=== PATIENT | male | born 1955 | race African-American/Black ===

== ENCOUNTER 2020-04-02 13:42 | Inpatient (IN) | payer OTHER ==
[2020-04-02 15:53] LABS: BASO % 0.9 % (0-2.0); EOS % 2.1 % (0-4.5); HEMATOCRIT 27.9 % (35.4-49); HEMOGLOBIN 8.8 GM/dL (11.7-16.9); LYMPH % 17.6 % (8-40); MCH 28.2 pg (25.7-33.7); MCHC 31.6 g/dl (32.0-35.9); MEAN CELL VOLUME 89.1 fl (80-96); MEAN PLT VOLUME 7.2 fl (7.5-11.1); MONO % 9.6 % (3.8-10.2); NEUT % 69.8 % (42.8-82.8); PLATELET COUNT 626 K/MM3 (134-434); RBC 3.14 M/mm3 (4.00-5.60); RDW 15.8 % (11.9-15.9); WHITE BLOOD COUNT 11.2 K/mm3 (4.0-10.0)
[2020-04-02 16:15] LABS: INR 1.18 (0.83-1.09); PROTHROMBIN TIME (PATIENT) 14.4 SEC (9.7-13.0)
[2020-04-02 16:17] LABS: ACTIVATED PTT 34.3 SECONDS (25.2-36.5)
[2020-04-02 16:20] LABS: CHLORIDE 99 mmol/L (98-107); POTASSIUM 5.3 mmol/L (3.5-5.1); SODIUM 137 mmol/L (136-145)
[2020-04-02 16:22] LABS: ALBUMIN 2.6 g/dl (3.4-5.0); ANION GAP 14 MMOL/L (8-16); CALCIUM 8.3 mg/dL (8.5-10.1); CO2 23 mmol/L (21-32); GLUCOSE,RANDOM 79 mg/dL (74-106)
[2020-04-02 16:26] LABS: SGOT/AST 12 U/L (15-37); SGPT/ALT 18 U/L (13-61)
[2020-04-02 16:27] LABS: BILIRUBIN,TOTAL 0.2 mg/dL (0.2-1); TOT PROT 8.4 g/dl (6.4-8.2)
[2020-04-02 16:28] LABS: ALK PHOS 162 U/L (45-117)
[2020-04-02 16:41] LABS: BLOOD UREA NITROGEN 108.7 mg/dL (7-18); CREATININE 12.6 mg/dL (0.55-1.3)
[2020-04-02] MEDS ORDERED: SODIUM CHLORIDE 250 ML IV PRN ×2 (19:12→19:13)
[2020-04-02] MEDS ORDERED: VANCOMYCIN 2,000 MG in DEXTROSE 5%-WATER - 500 ML IVPB ONE (21:15)
[2020-04-02] MEDS ORDERED: carBAMazepine 200 MG TABLET ONE (21:29)
[2020-04-02] MEDS ORDERED: PIPERACILLIN/TAZOB 2.25 GM 2.25 GM/50 ML BAG IVPB ONE (21:30)
[2020-04-02] MEDS ORDERED: DIVALPROEX SODIUM 125 MG TABLET E.C. ONE (21:30)
[2020-04-02] MEDS: PIPERACILLIN/TAZOB 2.25 GM 2.25 GM in DEXTROSE 5%-WATER - 50 ML IVPB SCH (21:43)
[2020-04-02] MEDS: DIVALPROEX SODIUM 250 MG TABLET E.C. PO SCH (22:00)
[2020-04-02] MEDS: HALOPERIDOL 5 MG TABLET PO SCH (22:00)
[2020-04-02] MEDS: carBAMazepine 200 MG TABLET PO SCH (22:09)
[2020-04-02] MEDS: INSULIN SLIDING SCALE (NOVOLOG) 1 VIAL SQ SCH (22:09)
[2020-04-03] MEDS ORDERED: PIPERACILLIN/TAZOBACTAM 2.25 GM VIAL IVPB ONE ×3 (05:55→17:38)
[2020-04-03] MEDS ORDERED: DEXTROSE 5%-WATER - 50 ML IVPB ONE ×3 (05:56→17:38)
[2020-04-03] MEDS: PIPERACILLIN/TAZOB 2.25 GM 2.25 GM in DEXTROSE 5%-WATER - 50 ML IVPB SCH ×3 (05:57→17:52)
[2020-04-03] MEDS: DIVALPROEX SODIUM 250 MG TABLET E.C. PO SCH ×3 (06:26→21:14)
[2020-04-03] MEDS: INSULIN SLIDING SCALE (NOVOLOG) 1 VIAL SQ SCH ×4 (06:30→21:45)
[2020-04-03] MEDS: SEVELAMER CARBONATE 800 MG TAB (FP) PO SCH ×3 (09:04→17:47)
[2020-04-03] MEDS: HALOPERIDOL 5 MG TABLET PO SCH ×2 (09:04→21:13)
[2020-04-03 09:29] LABS: BASO % 0.7 % (0-2.0); EOS % 3.4 % (0-4.5); HEMOGLOBIN 8.6 GM/dL (11.7-16.9); MCH 28.8 pg (25.7-33.7); MCHC 33.1 g/dl (32.0-35.9); MEAN CELL VOLUME 87.2 fl (80-96); MEAN PLT VOLUME 6.9 fl (7.5-11.1); MONO % 12.4 % (3.8-10.2); NEUT % 73.5 % (42.8-82.8); PLATELET COUNT 579 K/MM3 (134-434); RBC 2.99 M/mm3 (4.00-5.60); RDW 15.6 % (11.9-15.9); WHITE BLOOD COUNT 6.2 K/mm3 (4.0-10.0)
[2020-04-03 09:35] LABS: INR 1.15 (0.83-1.09); PROTHROMBIN TIME (PATIENT) 13.9 SEC (9.7-13.0)
[2020-04-03 10:04] LABS: ALBUMIN 2.6 g/dl (3.4-5.0); CALCIUM 8.5 mg/dL (8.5-10.1)
[2020-04-03 10:07] LABS: BILIRUBIN,TOTAL 0.3 mg/dL (0.2-1); PHOSPHOROUS 4.2 mg/dL (2.5-4.9); TOT PROT 8.3 g/dl (6.4-8.2)
[2020-04-03 10:08] LABS: BLOOD UREA NITROGEN 75.8 mg/dL (7-18)
[2020-04-03] MEDS: TAMSULOSIN HCL 0.4 MG CAP PO SCH (11:00)
[2020-04-03] MEDS: PANTOPRAZOLE 20 MG TABLET PO SCH (11:00)
[2020-04-03] MEDS: CHOLECALCIFEROL (VIT D3) 1,000 UNIT (25 MCG) TABLET PO SCH (11:00)
[2020-04-03] MEDS: VITAMIN B COMP W-C 1 EA TABLET (NEPHRO-VITE) PO SCH (11:00)
[2020-04-03] MEDS: carBAMazepine 200 MG TABLET PO SCH ×2 (11:00→21:45)
[2020-04-03] MEDS ORDERED: PT OWN MED DRAWER 7, Y5N ONE ×3 (11:09→21:10)
[2020-04-03 11:11] LABS: ANISOCYTOSIS 1+
[2020-04-03] MEDS ORDERED: EPOETIN ALFA-EPBX 10,000 UNIT/ML VIAL IVPUSH ONE (11:15)
[2020-04-03 11:40] LABS: CREATININE 8.4 mg/dL (0.55-1.3)
[2020-04-03] MEDS: ACETAMINOPHEN 325 MG TABLET (FP) PO PRN ×2 (16:53→21:45)
[2020-04-03] MEDS ORDERED: INSULIN (NOVOLOG) ASPART 100 UNITS/ML 10ML VIAL ONE (21:10)
[2020-04-03] MEDS: ATORVASTATIN CA 10 MG TABLET (FP) PO SCH (21:14)
[2020-04-03 22:19] LABS: EPI CELLS 6 /uL (0-25.1); HYALINE CASTS 0 /uL (0-3.1); URINE APPEARANCE CLEAR; URINE BACTERIA 157 /uL (0-1359); URINE BILIRUBIN NEGATIVE (NEGATIVE); URINE COLOR YELLOW; URINE GLUCOSE (UA) NEGATIVE (NEGATIVE); URINE KETONE NEGATIVE (NEGATIVE); URINE LEUK ESTERASE NEGATIVE (NEGATIVE); URINE NITRITE NEGATIVE (NEGATIVE); URINE PROTEIN 3+ (NEGATIVE); URINE RBC 34 /uL (0-23.9); URINE UROBILINOGEN 0.2 mg/dL (0.2-1.0); URINE WBC 12 /uL (0-25.8)
[2020-04-04] MEDS ORDERED: DEXTROSE 5%-WATER - 50 ML IVPB ONE ×3 (01:08→17:22)
[2020-04-04] MEDS ORDERED: PIPERACILLIN/TAZOBACTAM 2.25 GM VIAL IVPB ONE ×3 (01:08→17:21)
[2020-04-04] MEDS: PIPERACILLIN/TAZOB 2.25 GM 2.25 GM in DEXTROSE 5%-WATER - 50 ML IVPB SCH ×3 (01:25→17:23)
[2020-04-04] MEDS: BENZOCAINE/MENTH/CETYLPYRD CL 1 EACH LOZENGE MM PRN (01:25)
[2020-04-04] MEDS ORDERED: PT OWN MED DRAWER 7, Y5N ONE ×2 (06:00→20:54)
[2020-04-04] MEDS: DIVALPROEX SODIUM 250 MG TABLET E.C. PO SCH ×3 (06:21→21:06)
[2020-04-04] MEDS: INSULIN SLIDING SCALE (NOVOLOG) 1 VIAL SQ SCH ×4 (06:29→21:20)
[2020-04-04 09:04] LABS: BASO % 0.8 % (0-2.0); EOS % 1.5 % (0-4.5); HEMATOCRIT 27.9 % (35.4-49); LYMPH % 22.6 % (8-40); MCH 28.2 pg (25.7-33.7); MCHC 32.1 g/dl (32.0-35.9); MEAN CELL VOLUME 87.9 fl (80-96); MEAN PLT VOLUME 7.1 fl (7.5-11.1); MONO % 21.3 % (3.8-10.2); NEUT % 53.8 % (42.8-82.8); PLATELET COUNT 574 K/MM3 (134-434); RBC 3.17 M/mm3 (4.00-5.60)
[2020-04-04] MEDS: SEVELAMER CARBONATE 800 MG TAB (FP) PO SCH ×3 (09:16→17:23)
[2020-04-04] MEDS: TAMSULOSIN HCL 0.4 MG CAP PO SCH (09:16)
[2020-04-04] MEDS: VITAMIN B COMP W-C 1 EA TABLET (NEPHRO-VITE) PO SCH (09:17)
[2020-04-04] MEDS: HALOPERIDOL 5 MG TABLET PO SCH ×2 (09:17→21:06)
[2020-04-04] MEDS: carBAMazepine 200 MG TABLET PO SCH ×2 (09:17→21:06)
[2020-04-04] MEDS: PANTOPRAZOLE 20 MG TABLET PO SCH (09:17)
[2020-04-04] MEDS: CHOLECALCIFEROL (VIT D3) 1,000 UNIT (25 MCG) TABLET PO SCH (09:17)
[2020-04-04 09:26] LABS: POTASSIUM 5.5 mmol/L (3.5-5.1)
[2020-04-04 09:35] LABS: CALCIUM 8.5 mg/dL (8.5-10.1)
[2020-04-04 09:36] LABS: BLOOD UREA NITROGEN 77.9 mg/dL (7-18)
[2020-04-04 10:30] LABS: CREATININE 11.5 mg/dL (0.55-1.3)
[2020-04-04] MEDS ORDERED: CASIRIVIMAB (REGN10933) 1,200 MG, IMDEVIMAB (REGN10987) 1,200 MG in SODIUM CHLORIDE 230 ML IVPB ONE ×2 (10:44→15:00)
[2020-04-04] MEDS ORDERED: INSULIN (NOVOLOG) ASPART 100 UNITS/ML 10ML VIAL ONE (20:53)
[2020-04-04] MEDS: ATORVASTATIN CA 10 MG TABLET (FP) PO SCH (21:06)
[2020-04-04] MEDS: ACETAMINOPHEN 325 MG TABLET (FP) PO PRN (21:21)
[2020-04-05] MEDS: BENZOCAINE/MENTH/CETYLPYRD CL 1 EACH LOZENGE MM PRN ×3 (00:38→21:44)
[2020-04-05] MEDS ORDERED: PIPERACILLIN/TAZOBACTAM 2.25 GM VIAL IVPB ONE ×3 (04:04→17:01)
[2020-04-05] MEDS ORDERED: DEXTROSE 5%-WATER - 50 ML IVPB ONE ×3 (04:04→17:01)
[2020-04-05] MEDS: PIPERACILLIN/TAZOB 2.25 GM 2.25 GM in DEXTROSE 5%-WATER - 50 ML IVPB SCH ×3 (04:07→17:48)
[2020-04-05] MEDS: DIVALPROEX SODIUM 250 MG TABLET E.C. PO SCH ×3 (06:51→21:44)
[2020-04-05] MEDS: INSULIN SLIDING SCALE (NOVOLOG) 1 VIAL SQ SCH ×4 (06:58→21:44)
[2020-04-05] MEDS: SEVELAMER CARBONATE 800 MG TAB (FP) PO SCH ×3 (08:47→17:43)
[2020-04-05] MEDS: VITAMIN B COMP W-C 1 EA TABLET (NEPHRO-VITE) PO SCH (09:18)
[2020-04-05] MEDS: PANTOPRAZOLE 20 MG TABLET PO SCH (09:18)
[2020-04-05] MEDS: CHOLECALCIFEROL (VIT D3) 1,000 UNIT (25 MCG) TABLET PO SCH (09:18)
[2020-04-05] MEDS: TAMSULOSIN HCL 0.4 MG CAP PO SCH (09:18)
[2020-04-05] MEDS: carBAMazepine 200 MG TABLET PO SCH ×2 (09:20→21:44)
[2020-04-05] MEDS: HALOPERIDOL 5 MG TABLET PO SCH ×2 (09:20→22:42)
[2020-04-05] MEDS ORDERED: SODIUM CHLORIDE 250 ML IV PRN (09:37)
[2020-04-05 10:08] LABS: BASO % 0.8 % (0-2.0); EOS % 0.9 % (0-4.5); HEMATOCRIT 25.5 % (35.4-49); HEMOGLOBIN 8.2 GM/dL (11.7-16.9); LYMPH % 21.8 % (8-40); MCH 28.7 pg (25.7-33.7); MCHC 32.1 g/dl (32.0-35.9); MEAN CELL VOLUME 89.5 fl (80-96); MONO % 15.8 % (3.8-10.2); NEUT % 60.7 % (42.8-82.8); PLATELET COUNT 440 K/MM3 (134-434); RBC 2.85 M/mm3 (4.00-5.60); RDW 15.9 % (11.9-15.9); WHITE BLOOD COUNT 9.2 K/mm3 (4.0-10.0)
[2020-04-05 10:18] LABS: POTASSIUM 4.8 mmol/L (3.5-5.1)
[2020-04-05 10:26] LABS: BLOOD UREA NITROGEN 98.9 mg/dL (7-18)
[2020-04-05 10:27] LABS: CALCIUM 8.1 mg/dL (8.5-10.1)
[2020-04-05 10:29] LABS: PHOSPHOROUS 8.4 mg/dL (2.5-4.9)
[2020-04-05 11:19] LABS: CREATININE 13.7 mg/dL (0.55-1.3)
[2020-04-05] MEDS: COLLAGENASE CLOSTRIDIUM HIST. 30 GRAMS TUBE TP SCH (18:31)
[2020-04-05] MEDS: ATORVASTATIN CA 10 MG TABLET (FP) PO SCH (21:44)
[2020-04-06 00:27] LABS: ALBUMIN 2.6 g/dl (3.4-5.0)
[2020-04-06 00:30] LABS: BILIRUBIN,DIRECT 0.1 mg/dL (0.0-0.2)
[2020-04-06 00:32] LABS: BILIRUBIN,TOTAL 0.3 mg/dL (0.2-1); TOT PROT 8.2 g/dl (6.4-8.2)
[2020-04-06] MEDS ORDERED: PIPERACILLIN/TAZOBACTAM 2.25 GM VIAL IVPB ONE ×3 (01:08→16:37)
[2020-04-06] MEDS ORDERED: DEXTROSE 5%-WATER - 50 ML IVPB ONE ×3 (01:08→16:37)
[2020-04-06] MEDS: PIPERACILLIN/TAZOB 2.25 GM 2.25 GM in DEXTROSE 5%-WATER - 50 ML IVPB SCH ×3 (02:08→17:05)
[2020-04-06] MEDS: DIVALPROEX SODIUM 250 MG TABLET E.C. PO SCH ×3 (06:17→22:14)
[2020-04-06] MEDS: INSULIN SLIDING SCALE (NOVOLOG) 1 VIAL SQ SCH ×4 (06:17→22:13)
[2020-04-06] MEDS ORDERED: INSULIN (LEVEMIR) 100 UNITS/ML UNITS SQ ONE (07:02)
[2020-04-06] MEDS ORDERED: INSULIN (NOVOLOG) ASPART 100 UNITS/ML 10ML VIAL ONE (07:02)
[2020-04-06] MEDS: SEVELAMER CARBONATE 800 MG TAB (FP) PO SCH ×3 (08:15→17:36)
[2020-04-06 10:01] LABS: BASO % 0.6 % (0-2.0); EOS % 2.7 % (0-4.5); HEMATOCRIT 27.7 % (35.4-49); HEMOGLOBIN 9.1 GM/dL (11.7-16.9); LYMPH % 40.4 % (8-40); MCH 28.7 pg (25.7-33.7); MCHC 32.8 g/dl (32.0-35.9); MEAN CELL VOLUME 87.5 fl (80-96); MEAN PLT VOLUME 7.1 fl (7.5-11.1); MONO % 13.2 % (3.8-10.2); NEUT % 43.1 % (42.8-82.8); PLATELET COUNT 472 K/MM3 (134-434); RBC 3.16 M/mm3 (4.00-5.60); WHITE BLOOD COUNT 5.5 K/mm3 (4.0-10.0)
[2020-04-06] MEDS: CHOLECALCIFEROL (VIT D3) 1,000 UNIT (25 MCG) TABLET PO SCH (10:07)
[2020-04-06] MEDS: carBAMazepine 200 MG TABLET PO SCH ×2 (10:07→22:14)
[2020-04-06] MEDS: TAMSULOSIN HCL 0.4 MG CAP PO SCH (10:07)
[2020-04-06] MEDS: BENZOCAINE/MENTH/CETYLPYRD CL 1 EACH LOZENGE MM PRN ×2 (10:08→16:46)
[2020-04-06] MEDS: PANTOPRAZOLE 20 MG TABLET PO SCH (10:08)
[2020-04-06] MEDS: ZINC SULFATE 220 MG CAPSULE (FP) PO SCH (10:08)
[2020-04-06] MEDS: VITAMIN B COMP W-C 1 EA TABLET (NEPHRO-VITE) PO SCH (10:08)
[2020-04-06 10:19] LABS: POTASSIUM 4.3 mmol/L (3.5-5.1)
[2020-04-06 10:34] LABS: ALBUMIN 2.5 g/dl (3.4-5.0); CALCIUM 8.6 mg/dL (8.5-10.1); MAGNESIUM 2.1 mg/dL (1.8-2.4)
[2020-04-06 10:37] LABS: PHOSPHOROUS 8.6 mg/dL (2.5-4.9)
[2020-04-06 10:39] LABS: BILIRUBIN,TOTAL 0.3 mg/dL (0.2-1); TOT PROT 8.4 g/dl (6.4-8.2)
[2020-04-06 10:41] LABS: BLOOD UREA NITROGEN 65.7 mg/dL (7-18)
[2020-04-06 10:49] LABS: CREATININE 10.4 mg/dL (0.55-1.3)
[2020-04-06] MEDS ORDERED: SODIUM CHLORIDE 250 ML IV PRN (12:02)
[2020-04-06] MEDS: HALOPERIDOL 5 MG TABLET PO SCH ×2 (12:25→22:14)
[2020-04-06] MEDS: ASCORBIC ACID 250 MG TABLET (FP) PO SCH ×2 (12:26→22:14)
[2020-04-06] MEDS: COLLAGENASE CLOSTRIDIUM HIST. 30 GRAMS TUBE TP SCH (14:43)
[2020-04-06] MEDS ORDERED: PT OWN MED DRAWER 7, Y5N ONE (16:37)
[2020-04-06] MEDS: ATORVASTATIN CA 10 MG TABLET (FP) PO SCH (22:14)
[2020-04-07] MEDS ORDERED: DEXTROSE 5%-WATER - 50 ML IVPB ONE ×3 (00:04→17:06)
[2020-04-07] MEDS ORDERED: PIPERACILLIN/TAZOBACTAM 2.25 GM VIAL IVPB ONE ×3 (00:04→17:06)
[2020-04-07] MEDS: PIPERACILLIN/TAZOB 2.25 GM 2.25 GM in DEXTROSE 5%-WATER - 50 ML IVPB SCH ×3 (02:00→18:57)
[2020-04-07] MEDS: DIVALPROEX SODIUM 250 MG TABLET E.C. PO SCH ×3 (05:54→21:23)
[2020-04-07] MEDS: INSULIN SLIDING SCALE (NOVOLOG) 1 VIAL SQ SCH ×4 (06:21→21:23)
[2020-04-07] MEDS ORDERED: EPOETIN ALFA-EPBX 10,000 UNIT/ML VIAL IVPUSH ONE (09:00)
[2020-04-07 09:25] LABS: BASO % 0.5 % (0-2.0); EOS % 3.3 % (0-4.5); HEMATOCRIT 24.9 % (35.4-49); LYMPH % 35.5 % (8-40); MCH 28.3 pg (25.7-33.7); MCHC 32.3 g/dl (32.0-35.9); MEAN CELL VOLUME 87.7 fl (80-96); MEAN PLT VOLUME 7.6 fl (7.5-11.1); MONO % 11.2 % (3.8-10.2); NEUT % 49.5 % (42.8-82.8); PLATELET COUNT 390 K/MM3 (134-434); RBC 2.84 M/mm3 (4.00-5.60); RDW 15.7 % (11.9-15.9); WHITE BLOOD COUNT 5.2 K/mm3 (4.0-10.0)
[2020-04-07 09:54] LABS: POTASSIUM 4.6 mmol/L (3.5-5.1)
[2020-04-07 09:55] LABS: ALBUMIN 2.2 g/dl (3.4-5.0); BLOOD UREA NITROGEN 83.6 mg/dL (7-18); CALCIUM 7.8 mg/dL (8.5-10.1)
[2020-04-07 09:56] LABS: MAGNESIUM 2.2 mg/dL (1.8-2.4)
[2020-04-07 10:00] LABS: BILIRUBIN,TOTAL 0.2 mg/dL (0.2-1)
[2020-04-07 10:02] LABS: TOT PROT 7.5 g/dl (6.4-8.2)
[2020-04-07 10:18] LABS: CREATININE 12.4 mg/dL (0.55-1.3)
[2020-04-07 10:25] LABS: PHOSPHOROUS 8.5 mg/dL (2.5-4.9)
[2020-04-07] MEDS ORDERED: PT OWN MED DRAWER 7, Y5N ONE ×4 (11:20→23:07)
[2020-04-07] MEDS: HALOPERIDOL 5 MG TABLET PO SCH ×2 (11:34→21:23)
[2020-04-07] MEDS: VITAMIN B COMP W-C 1 EA TABLET (NEPHRO-VITE) PO SCH (11:37)
[2020-04-07] MEDS: SEVELAMER CARBONATE 800 MG TAB (FP) PO SCH ×3 (11:38→16:37)
[2020-04-07] MEDS: ZINC SULFATE 220 MG CAPSULE (FP) PO SCH (11:39)
[2020-04-07] MEDS: TAMSULOSIN HCL 0.4 MG CAP PO SCH (11:39)
[2020-04-07] MEDS: PANTOPRAZOLE 20 MG TABLET PO SCH (11:40)
[2020-04-07] MEDS: COLLAGENASE CLOSTRIDIUM HIST. 30 GRAMS TUBE TP SCH (11:43)
[2020-04-07] MEDS: carBAMazepine 200 MG TABLET PO SCH ×2 (11:43→21:23)
[2020-04-07] MEDS: ASCORBIC ACID 250 MG TABLET (FP) PO SCH ×2 (11:44→21:23)
[2020-04-07] MEDS: CHOLECALCIFEROL (VIT D3) 1,000 UNIT (25 MCG) TABLET PO SCH (11:45)
[2020-04-07 12:07] LABS: HEP B CORE AB, TOT Negative (Negative)
[2020-04-07] MEDS ORDERED: INSULIN (NOVOLOG) ASPART 100 UNITS/ML 10ML VIAL ONE (12:29)
[2020-04-07] MEDS: ATORVASTATIN CA 10 MG TABLET (FP) PO SCH (21:24)
[2020-04-08] MEDS ORDERED: DEXTROSE 5%-WATER - 50 ML IVPB ONE ×3 (01:23→17:08)
[2020-04-08] MEDS ORDERED: PIPERACILLIN/TAZOBACTAM 2.25 GM VIAL IVPB ONE ×3 (01:23→17:08)
[2020-04-08] MEDS: PIPERACILLIN/TAZOB 2.25 GM 2.25 GM in DEXTROSE 5%-WATER - 50 ML IVPB SCH ×3 (01:26→17:13)
[2020-04-08] MEDS: INSULIN SLIDING SCALE (NOVOLOG) 1 VIAL SQ SCH ×4 (06:37→22:56)
[2020-04-08] MEDS: DIVALPROEX SODIUM 250 MG TABLET E.C. PO SCH ×3 (06:37→22:56)
[2020-04-08 08:45] LABS: BASO % 0.8 % (0-2.0); EOS % 2.6 % (0-4.5); HEMATOCRIT 28.3 % (35.4-49); HEMOGLOBIN 9.1 GM/dL (11.7-16.9); LYMPH % 36.6 % (8-40); MCH 28.1 pg (25.7-33.7); MCHC 32.2 g/dl (32.0-35.9); MEAN CELL VOLUME 87.4 fl (80-96); MEAN PLT VOLUME 7.4 fl (7.5-11.1); MONO % 8.9 % (3.8-10.2); NEUT % 51.1 % (42.8-82.8); PLATELET COUNT 406 K/MM3 (134-434); RBC 3.24 M/mm3 (4.00-5.60); RDW 15.8 % (11.9-15.9); WHITE BLOOD COUNT 7.1 K/mm3 (4.0-10.0)
[2020-04-08 09:03] LABS: POTASSIUM 4.4 mmol/L (3.5-5.1)
[2020-04-08 09:09] LABS: ALBUMIN 2.6 g/dl (3.4-5.0); BLOOD UREA NITROGEN 59.9 mg/dL (7-18); CALCIUM 8.4 mg/dL (8.5-10.1)
[2020-04-08 09:13] LABS: PHOSPHOROUS 7.4 mg/dL (2.5-4.9)
[2020-04-08 09:14] LABS: BILIRUBIN,TOTAL 0.7 mg/dL (0.2-1); TOT PROT 8.7 g/dl (6.4-8.2)
[2020-04-08 09:42] LABS: CREATININE 9.9 mg/dL (0.55-1.3)
[2020-04-08] MEDS ORDERED: PT OWN MED DRAWER 7, Y5N ONE ×3 (09:43→21:56)
[2020-04-08] MEDS: SEVELAMER CARBONATE 800 MG TAB (FP) PO SCH ×3 (10:05→17:13)
[2020-04-08] MEDS: ZINC SULFATE 220 MG CAPSULE (FP) PO SCH (10:05)
[2020-04-08] MEDS: HALOPERIDOL 5 MG TABLET PO SCH ×2 (10:05→22:56)
[2020-04-08] MEDS: VITAMIN B COMP W-C 1 EA TABLET (NEPHRO-VITE) PO SCH (10:05)
[2020-04-08] MEDS: ASCORBIC ACID 250 MG TABLET (FP) PO SCH ×2 (10:05→22:56)
[2020-04-08] MEDS: CHOLECALCIFEROL (VIT D3) 1,000 UNIT (25 MCG) TABLET PO SCH (10:06)
[2020-04-08] MEDS: TAMSULOSIN HCL 0.4 MG CAP PO SCH (10:06)
[2020-04-08] MEDS: carBAMazepine 200 MG TABLET PO SCH ×2 (10:06→22:56)
[2020-04-08] MEDS: PANTOPRAZOLE 20 MG TABLET PO SCH (10:06)
[2020-04-08] MEDS: COLLAGENASE CLOSTRIDIUM HIST. 30 GRAMS TUBE TP SCH (10:06)
[2020-04-08] MEDS ORDERED: SODIUM CHLORIDE 250 ML IV PRN (12:11)
[2020-04-08] MEDS: ATORVASTATIN CA 10 MG TABLET (FP) PO SCH (22:56)
[2020-04-09] MEDS ORDERED: PIPERACILLIN/TAZOBACTAM 2.25 GM VIAL IVPB ONE ×3 (01:20→17:06)
[2020-04-09] MEDS ORDERED: DEXTROSE 5%-WATER - 50 ML IVPB ONE ×3 (01:20→17:06)
[2020-04-09] MEDS: PIPERACILLIN/TAZOB 2.25 GM 2.25 GM in DEXTROSE 5%-WATER - 50 ML IVPB SCH ×3 (01:23→19:06)
[2020-04-09] MEDS: DIVALPROEX SODIUM 250 MG TABLET E.C. PO SCH ×4 (06:17→21:56)
[2020-04-09] MEDS: INSULIN SLIDING SCALE (NOVOLOG) 1 VIAL SQ SCH ×3 (06:17→16:25)
[2020-04-09] MEDS ORDERED: SODIUM CHLORIDE 250 ML IV PRN (07:00)
[2020-04-09] MEDS ORDERED: EPOETIN ALFA 10,000 UNIT/1 ML VIAL IVPUSH ONE (08:00)
[2020-04-09 09:38] LABS: BASO % 0.7 % (0-2.0); HEMATOCRIT 26.5 % (35.4-49); HEMOGLOBIN 8.6 GM/dL (11.7-16.9); LYMPH % 35.1 % (8-40); MCH 28.2 pg (25.7-33.7); MCHC 32.4 g/dl (32.0-35.9); MEAN CELL VOLUME 87.1 fl (80-96); MEAN PLT VOLUME 7.8 fl (7.5-11.1); NEUT % 53.2 % (42.8-82.8); PLATELET COUNT 364 K/MM3 (134-434); RBC 3.05 M/mm3 (4.00-5.60); RDW 15.7 % (11.9-15.9); WHITE BLOOD COUNT 7.2 K/mm3 (4.0-10.0)
[2020-04-09] MEDS: SEVELAMER CARBONATE 800 MG TAB (FP) PO SCH ×4 (10:00→17:23)
[2020-04-09 10:02] LABS: POTASSIUM 4.5 mmol/L (3.5-5.1)
[2020-04-09 10:05] LABS: ALBUMIN 2.4 g/dl (3.4-5.0); CALCIUM 8.1 mg/dL (8.5-10.1)
[2020-04-09 10:06] LABS: BLOOD UREA NITROGEN 75.7 mg/dL (7-18); MAGNESIUM 2.2 mg/dL (1.8-2.4)
[2020-04-09 10:11] LABS: TOT PROT 7.9 g/dl (6.4-8.2)
[2020-04-09 10:13] LABS: BILIRUBIN,TOTAL 0.4 mg/dL (0.2-1)
[2020-04-09 10:37] LABS: CREATININE 12.3 mg/dL (0.55-1.3)
[2020-04-09] MEDS: CHOLECALCIFEROL (VIT D3) 1,000 UNIT (25 MCG) TABLET PO SCH (10:40)
[2020-04-09] MEDS: TAMSULOSIN HCL 0.4 MG CAP PO SCH (10:40)
[2020-04-09] MEDS: PANTOPRAZOLE 20 MG TABLET PO SCH (10:40)
[2020-04-09] MEDS: HALOPERIDOL 5 MG TABLET PO SCH ×2 (10:40→21:57)
[2020-04-09] MEDS: ZINC SULFATE 220 MG CAPSULE (FP) PO SCH (10:40)
[2020-04-09] MEDS: ASCORBIC ACID 250 MG TABLET (FP) PO SCH ×2 (10:41→21:57)
[2020-04-09] MEDS: carBAMazepine 200 MG TABLET PO SCH ×2 (10:41→21:58)
[2020-04-09] MEDS: VITAMIN B COMP W-C 1 EA TABLET (NEPHRO-VITE) PO SCH (10:42)
[2020-04-09] MEDS: COLLAGENASE CLOSTRIDIUM HIST. 30 GRAMS TUBE TP SCH (15:33)
[2020-04-09] MEDS ORDERED: PT OWN MED DRAWER 7, Y5N ONE (21:48)
[2020-04-09] MEDS: ATORVASTATIN CA 10 MG TABLET (FP) PO SCH (21:57)
[2020-04-10] MEDS: INSULIN SLIDING SCALE (NOVOLOG) 1 VIAL SQ SCH ×5 (00:12→21:05)
[2020-04-10] MEDS: PIPERACILLIN/TAZOB 2.25 GM 2.25 GM in DEXTROSE 5%-WATER - 50 ML IVPB SCH ×2 (02:52→10:07)
[2020-04-10] MEDS ORDERED: PT OWN MED DRAWER 7, Y5N ONE ×3 (05:54→20:48)
[2020-04-10] MEDS: DIVALPROEX SODIUM 250 MG TABLET E.C. PO SCH ×3 (06:36→21:05)
[2020-04-10] MEDS: SEVELAMER CARBONATE 800 MG TAB (FP) PO SCH ×3 (09:00→17:22)
[2020-04-10] MEDS ORDERED: DEXTROSE 5%-WATER - 50 ML IVPB ONE (09:15)
[2020-04-10] MEDS ORDERED: PIPERACILLIN/TAZOBACTAM 2.25 GM VIAL IVPB ONE (09:15)
[2020-04-10] MEDS: ZINC SULFATE 220 MG CAPSULE (FP) PO SCH (09:42)
[2020-04-10] MEDS: ASCORBIC ACID 250 MG TABLET (FP) PO SCH ×2 (09:43→21:05)
[2020-04-10] MEDS: HALOPERIDOL 5 MG TABLET PO SCH ×2 (09:43→21:06)
[2020-04-10] MEDS: PANTOPRAZOLE 20 MG TABLET PO SCH (09:43)
[2020-04-10] MEDS: CHOLECALCIFEROL (VIT D3) 1,000 UNIT (25 MCG) TABLET PO SCH (09:43)
[2020-04-10] MEDS: carBAMazepine 200 MG TABLET PO SCH ×2 (09:43→21:05)
[2020-04-10] MEDS: VITAMIN B COMP W-C 1 EA TABLET (NEPHRO-VITE) PO SCH (09:43)
[2020-04-10] MEDS: TAMSULOSIN HCL 0.4 MG CAP PO SCH (09:45)
[2020-04-10] MEDS ORDERED: ERGOCALCIFEROL 8,000 UNITS/ML DROPSBTL PO SCH (10:00)
[2020-04-10 10:43] LABS: BASO % 0.9 % (0-2.0); EOS % 2.1 % (0-4.5); HEMATOCRIT 29.7 % (35.4-49); HEMOGLOBIN 9.4 GM/dL (11.7-16.9); LYMPH % 33.4 % (8-40); MCH 27.9 pg (25.7-33.7); MCHC 31.8 g/dl (32.0-35.9); MEAN CELL VOLUME 87.8 fl (80-96); MONO % 7.3 % (3.8-10.2); NEUT % 56.3 % (42.8-82.8); PLATELET COUNT 354 K/MM3 (134-434); RBC 3.39 M/mm3 (4.00-5.60); WHITE BLOOD COUNT 7.1 K/mm3 (4.0-10.0)
[2020-04-10 10:49] LABS: INR 1.09 (0.83-1.09); PROTHROMBIN TIME (PATIENT) 13.4 SEC (9.7-13.0)
[2020-04-10 11:30] LABS: ALBUMIN 2.7 g/dl (3.4-5.0); BLOOD UREA NITROGEN 54.7 mg/dL (7-18); CALCIUM 8.5 mg/dL (8.5-10.1)
[2020-04-10 11:32] LABS: PHOSPHOROUS 6.6 mg/dL (2.5-4.9)
[2020-04-10 11:34] LABS: BILIRUBIN,TOTAL 1.3 mg/dL (0.2-1); TOT PROT 8.7 g/dl (6.4-8.2)
[2020-04-10 11:58] LABS: CREATININE 10.6 mg/dL (0.55-1.3)
[2020-04-10 12:50] LABS: ANISOCYTOSIS 1+; MACROCYTOSIS 1+; PLATELET ESTIMATE NORMAL
[2020-04-10] MEDS: COLLAGENASE CLOSTRIDIUM HIST. 30 GRAMS TUBE TP SCH (15:27)
[2020-04-10] MEDS: ATORVASTATIN CA 10 MG TABLET (FP) PO SCH (21:05)
[2020-04-11] MEDS: INSULIN SLIDING SCALE (NOVOLOG) 1 VIAL SQ SCH ×4 (06:47→22:06)
[2020-04-11] MEDS: DIVALPROEX SODIUM 250 MG TABLET E.C. PO SCH ×3 (06:47→22:06)
[2020-04-11] MEDS ORDERED: INSULIN (NOVOLOG) ASPART 100 UNITS/ML 10ML VIAL ONE (08:49)
[2020-04-11] MEDS: TAMSULOSIN HCL 0.4 MG CAP PO SCH (09:57)
[2020-04-11] MEDS: HALOPERIDOL 5 MG TABLET PO SCH ×2 (09:57→22:06)
[2020-04-11] MEDS: SEVELAMER CARBONATE 800 MG TAB (FP) PO SCH ×3 (09:57→17:16)
[2020-04-11] MEDS: VITAMIN B COMP W-C 1 EA TABLET (NEPHRO-VITE) PO SCH (09:57)
[2020-04-11] MEDS: ZINC SULFATE 220 MG CAPSULE (FP) PO SCH (09:58)
[2020-04-11] MEDS: CHOLECALCIFEROL (VIT D3) 1,000 UNIT (25 MCG) TABLET PO SCH (09:58)
[2020-04-11] MEDS: COLLAGENASE CLOSTRIDIUM HIST. 30 GRAMS TUBE TP SCH (09:58)
[2020-04-11] MEDS: PANTOPRAZOLE 20 MG TABLET PO SCH (09:58)
[2020-04-11] MEDS ORDERED: PT OWN MED DRAWER 7, Y5N ONE (10:00)
[2020-04-11] MEDS: ASCORBIC ACID 250 MG TABLET (FP) PO SCH ×2 (10:01→22:06)
[2020-04-11] MEDS: carBAMazepine 200 MG TABLET PO SCH ×2 (10:02→22:06)
[2020-04-11] MEDS: BENZOCAINE/MENTH/CETYLPYRD CL 1 EACH LOZENGE MM PRN ×2 (10:19→13:32)
[2020-04-11] MEDS: ATORVASTATIN CA 10 MG TABLET (FP) PO SCH (22:06)
[2020-04-12] MEDS: INSULIN SLIDING SCALE (NOVOLOG) 1 VIAL SQ SCH ×4 (06:38→21:27)
[2020-04-12] MEDS: DIVALPROEX SODIUM 250 MG TABLET E.C. PO SCH ×3 (06:38→21:27)
[2020-04-12] MEDS ORDERED: LOSARTAN POTASSIUM 25 MG TABLET PO ONE (07:57)
[2020-04-12] MEDS ORDERED: EPOETIN ALFA 10,000 UNIT/1 ML VIAL IVPUSH ONE (08:25)
[2020-04-12] MEDS ORDERED: SODIUM CHLORIDE 250 ML IV PRN (08:25)
[2020-04-12 10:20] LABS: BASO % 0.5 % (0-2.0); EOS % 1.8 % (0-4.5); HEMOGLOBIN 8.4 GM/dL (11.7-16.9); LYMPH % 27.1 % (8-40); MCH 28.3 pg (25.7-33.7); MCHC 32.2 g/dl (32.0-35.9); MEAN CELL VOLUME 87.7 fl (80-96); MEAN PLT VOLUME 7.5 fl (7.5-11.1); MONO % 8.1 % (3.8-10.2); NEUT % 62.5 % (42.8-82.8); PLATELET COUNT 334 K/MM3 (134-434); RBC 2.97 M/mm3 (4.00-5.60); WHITE BLOOD COUNT 7.1 K/mm3 (4.0-10.0)
[2020-04-12 10:32] LABS: POTASSIUM 4.1 mmol/L (3.5-5.1)
[2020-04-12 10:35] LABS: ALBUMIN 2.5 g/dl (3.4-5.0); CALCIUM 8.3 mg/dL (8.5-10.1)
[2020-04-12 10:40] LABS: BILIRUBIN,TOTAL 0.5 mg/dL (0.2-1); TOT PROT 7.7 g/dl (6.4-8.2)
[2020-04-12 10:42] LABS: BLOOD UREA NITROGEN 93.2 mg/dL (7-18)
[2020-04-12 10:44] LABS: CREATININE 15.1 mg/dL (0.55-1.3)
[2020-04-12] MEDS: HALOPERIDOL 5 MG TABLET PO SCH ×2 (12:19→21:26)
[2020-04-12] MEDS: TAMSULOSIN HCL 0.4 MG CAP PO SCH (12:46)
[2020-04-12] MEDS: SEVELAMER CARBONATE 800 MG TAB (FP) PO SCH ×3 (12:46→17:46)
[2020-04-12] MEDS: COLLAGENASE CLOSTRIDIUM HIST. 30 GRAMS TUBE TP SCH (12:50)
[2020-04-12] MEDS: VITAMIN B COMP W-C 1 EA TABLET (NEPHRO-VITE) PO SCH (12:50)
[2020-04-12] MEDS: METOPROLOL TARTRATE 25 MG TABLET (FP) PO SCH ×2 (12:50→21:26)
[2020-04-12] MEDS: PANTOPRAZOLE 20 MG TABLET PO SCH (12:50)
[2020-04-12] MEDS: ZINC SULFATE 220 MG CAPSULE (FP) PO SCH (12:50)
[2020-04-12] MEDS: carBAMazepine 200 MG TABLET PO SCH ×2 (12:51→21:27)
[2020-04-12] MEDS: CHOLECALCIFEROL (VIT D3) 1,000 UNIT (25 MCG) TABLET PO SCH (12:52)
[2020-04-12] MEDS: ASCORBIC ACID 250 MG TABLET (FP) PO SCH ×2 (12:52→21:27)
[2020-04-12] MEDS ORDERED: PT OWN MED DRAWER 7, Y5N ONE (21:22)
[2020-04-12] MEDS: ATORVASTATIN CA 10 MG TABLET (FP) PO SCH (21:26)
[2020-04-13] MEDS: DIVALPROEX SODIUM 250 MG TABLET E.C. PO SCH ×3 (05:53→21:59)
[2020-04-13] MEDS: INSULIN SLIDING SCALE (NOVOLOG) 1 VIAL SQ SCH ×4 (06:12→22:00)
[2020-04-13] MEDS ORDERED: PROPOFOL 20 ML ONE (08:05)
[2020-04-13] MEDS ORDERED: MIDAZOLAM HCL 2 MG/2 ML SINGLE DOSE VIAL ONE (08:05)
[2020-04-13] MEDS ORDERED: ceFAZolin SODIUM 1 GM VIAL IVPB ONE (08:57)
[2020-04-13] MEDS ORDERED: LIDOCAINE HCL 2% (50ML VIAL) NR ONE (08:58)
[2020-04-13] MEDS ORDERED: VANCOMYCIN 1,000 MG VIAL (RESTRICTED TO ID ONLY) ONE (09:01)
[2020-04-13] MEDS ORDERED: BACITRACIN 50,000 UNITS VIAL TP ONE (09:09)
[2020-04-13] MEDS ORDERED: VANCOMYCIN 1,000 MG VIAL (RESTRICTED TO ID ONLY) IVPB ONE (09:10)
[2020-04-13] MEDS: SEVELAMER CARBONATE 800 MG TAB (FP) PO SCH ×3 (09:38→18:03)
[2020-04-13] MEDS ORDERED: ONDANSETRON 4 MG/2 ML VIAL IVPUSH PRN (10:06)
[2020-04-13] MEDS ORDERED: METOPROLOL TARTRATE 5 MG/5 ML VIAL IVPUSH ONE (10:07)
[2020-04-13] MEDS ORDERED: METOPROLOL TARTRATE 5 MG/5 ML VIAL ONE (10:08)
[2020-04-13] MEDS ORDERED: ACETAMINOPHEN 325 MG TABLET (FP) PO PRN (10:29)
[2020-04-13] MEDS ORDERED: EPOETIN ALFA 10,000 UNIT/1 ML VIAL IVPUSH ONE (10:29)
[2020-04-13] MEDS ORDERED: SODIUM CHLORIDE 250 ML IV PRN ×2 (10:29→12:56)
[2020-04-13] MEDS: TAMSULOSIN HCL 0.4 MG CAP PO SCH (10:58)
[2020-04-13] MEDS: COLLAGENASE CLOSTRIDIUM HIST. 30 GRAMS TUBE TP SCH (10:58)
[2020-04-13] MEDS: HALOPERIDOL 5 MG TABLET PO SCH ×2 (10:58→21:59)
[2020-04-13] MEDS: VITAMIN B COMP W-C 1 EA TABLET (NEPHRO-VITE) PO SCH (11:02)
[2020-04-13] MEDS: METOPROLOL TARTRATE 25 MG TABLET (FP) PO SCH ×2 (11:59→21:59)
[2020-04-13] MEDS: ZINC SULFATE 220 MG CAPSULE (FP) PO SCH (11:59)
[2020-04-13] MEDS: PANTOPRAZOLE 20 MG TABLET PO SCH (11:59)
[2020-04-13] MEDS: carBAMazepine 200 MG TABLET PO SCH ×2 (12:00→22:00)
[2020-04-13] MEDS: CHOLECALCIFEROL (VIT D3) 1,000 UNIT (25 MCG) TABLET PO SCH (12:00)
[2020-04-13] MEDS: ASCORBIC ACID 250 MG TABLET (FP) PO SCH ×2 (12:00→21:59)
[2020-04-13 14:21] LABS: BASO % 0.5 % (0-2.0); EOS % 1.5 % (0-4.5); HEMATOCRIT 27.5 % (35.4-49); HEMOGLOBIN 8.8 GM/dL (11.7-16.9); LYMPH % 21.6 % (8-40); MCH 28.2 pg (25.7-33.7); MCHC 31.8 g/dl (32.0-35.9); MEAN CELL VOLUME 88.7 fl (80-96); MEAN PLT VOLUME 7.8 fl (7.5-11.1); MONO % 8.5 % (3.8-10.2); NEUT % 67.9 % (42.8-82.8); PLATELET COUNT 312 K/MM3 (134-434); RDW 15.8 % (11.9-15.9); WHITE BLOOD COUNT 8.3 K/mm3 (4.0-10.0)
[2020-04-13 14:25] LABS: INR 1.18 (0.83-1.09); PROTHROMBIN TIME (PATIENT) 14.2 SEC (9.7-13.0)
[2020-04-13 14:28] LABS: ACTIVATED PTT 32.1 SECONDS (25.2-36.5)
[2020-04-13 14:38] LABS: POTASSIUM 4.5 mmol/L (3.5-5.1)
[2020-04-13 14:42] LABS: ALBUMIN 2.6 g/dl (3.4-5.0); BLOOD UREA NITROGEN 69.9 mg/dL (7-18); CALCIUM 8.2 mg/dL (8.5-10.1)
[2020-04-13 14:44] LABS: PHOSPHOROUS 7.2 mg/dL (2.5-4.9)
[2020-04-13 14:46] LABS: BILIRUBIN,TOTAL 0.2 mg/dL (0.2-1); TOT PROT 7.8 g/dl (6.4-8.2)
[2020-04-13 14:48] LABS: CREATININE 12.3 mg/dL (0.55-1.3)
[2020-04-13] MEDS ORDERED: PT OWN MED DRAWER 7, Y5N ONE ×2 (15:14→21:18)
[2020-04-13] MEDS ORDERED: DEXTROSE 5%-WATER - 50 ML IVPB ONE (17:46)
[2020-04-13] MEDS ORDERED: PIPERACILLIN/TAZOBACTAM 2.25 GM VIAL IVPB ONE (17:46)
[2020-04-13] MEDS: PIPERACILLIN/TAZOB 2.25 GM 2.25 GM in DEXTROSE 5%-WATER - 50 ML IVPB SCH (18:03)
[2020-04-13] MEDS: ATORVASTATIN CA 10 MG TABLET (FP) PO SCH (21:59)
[2020-04-13] MEDS ORDERED: HALOPERIDOL 5 MG TABLET PO ONE (22:35)
[2020-04-13] MEDS ORDERED: DIVALPROEX SODIUM 250 MG TABLET E.C. PO ONE (22:35)
[2020-04-13] MEDS ORDERED: ATORVASTATIN CA 10 MG TABLET (FP) PO ONE (22:36)
[2020-04-13] MEDS ORDERED: carBAMazepine 200 MG TABLET PO ONE (22:36)
[2020-04-13] MEDS ORDERED: ASCORBIC ACID 250 MG TABLET (FP) PO ONE (23:00)
[2020-04-14] MEDS ORDERED: PIPERACILLIN/TAZOBACTAM 2.25 GM VIAL IVPB ONE ×3 (01:21→17:07)
[2020-04-14] MEDS ORDERED: DEXTROSE 5%-WATER - 50 ML IVPB ONE ×3 (01:21→17:07)
[2020-04-14] MEDS: PIPERACILLIN/TAZOB 2.25 GM 2.25 GM in DEXTROSE 5%-WATER - 50 ML IVPB SCH ×3 (01:24→17:02)
[2020-04-14] MEDS ORDERED: PT OWN MED DRAWER 7, Y5N ONE ×2 (02:30→20:40)
[2020-04-14] MEDS: DIVALPROEX SODIUM 250 MG TABLET E.C. PO SCH ×3 (05:24→21:14)
[2020-04-14] MEDS: INSULIN SLIDING SCALE (NOVOLOG) 1 VIAL SQ SCH ×4 (06:07→21:51)
[2020-04-14] MEDS ORDERED: EPOETIN ALFA 10,000 UNIT/1 ML VIAL IVPUSH ONE (08:00)
[2020-04-14] MEDS: HALOPERIDOL 5 MG TABLET PO SCH ×2 (09:11→21:13)
[2020-04-14] MEDS: BENZOCAINE/MENTH/CETYLPYRD CL 1 EACH LOZENGE MM PRN ×2 (09:12→13:59)
[2020-04-14] MEDS: TAMSULOSIN HCL 0.4 MG CAP PO SCH (09:12)
[2020-04-14] MEDS: SEVELAMER CARBONATE 800 MG TAB (FP) PO SCH ×3 (09:12→17:01)
[2020-04-14 10:20] LABS: HEMATOCRIT 25.4 % (35.4-49); HEMOGLOBIN 8.1 GM/dL (11.7-16.9); MCHC 31.8 g/dl (32.0-35.9); MEAN PLT VOLUME 7.8 fl (7.5-11.1); PLATELET COUNT 294 K/MM3 (134-434); RBC 2.89 M/mm3 (4.00-5.60); RDW 16.4 % (11.9-15.9)
[2020-04-14 10:44] LABS: POTASSIUM 4.6 mmol/L (3.5-5.1)
[2020-04-14 10:47] LABS: MAGNESIUM 2.3 mg/dL (1.8-2.4)
[2020-04-14 10:50] LABS: PHOSPHOROUS 6.8 mg/dL (2.5-4.9)
[2020-04-14 11:00] LABS: CREATININE 13.7 mg/dL (0.55-1.3)
[2020-04-14] MEDS: CHOLECALCIFEROL (VIT D3) 1,000 UNIT (25 MCG) TABLET PO SCH (13:56)
[2020-04-14] MEDS: ZINC SULFATE 220 MG CAPSULE (FP) PO SCH (13:56)
[2020-04-14] MEDS: VITAMIN B COMP W-C 1 EA TABLET (NEPHRO-VITE) PO SCH (13:56)
[2020-04-14] MEDS: ASCORBIC ACID 250 MG TABLET (FP) PO SCH ×2 (13:57→21:14)
[2020-04-14] MEDS: PANTOPRAZOLE 20 MG TABLET PO SCH (13:57)
[2020-04-14] MEDS: METOPROLOL TARTRATE 25 MG TABLET (FP) PO SCH ×2 (13:57→21:13)
[2020-04-14] MEDS: carBAMazepine 200 MG TABLET PO SCH ×2 (13:58→21:14)
[2020-04-14] MEDS: ATORVASTATIN CA 10 MG TABLET (FP) PO SCH (21:13)
[2020-04-15] MEDS ORDERED: PIPERACILLIN/TAZOBACTAM 2.25 GM VIAL IVPB ONE ×3 (00:58→17:27)
[2020-04-15] MEDS ORDERED: DEXTROSE 5%-WATER - 50 ML IVPB ONE ×3 (00:58→17:27)
[2020-04-15] MEDS: PIPERACILLIN/TAZOB 2.25 GM 2.25 GM in DEXTROSE 5%-WATER - 50 ML IVPB SCH ×3 (01:56→17:29)
[2020-04-15] MEDS: DIVALPROEX SODIUM 250 MG TABLET E.C. PO SCH ×3 (06:08→22:33)
[2020-04-15] MEDS: INSULIN SLIDING SCALE (NOVOLOG) 1 VIAL SQ SCH ×4 (06:30→22:32)
[2020-04-15] MEDS ORDERED: PT OWN MED DRAWER 7, Y5N ONE (09:23)
[2020-04-15] MEDS: TAMSULOSIN HCL 0.4 MG CAP PO SCH ×2 (09:29→09:30)
[2020-04-15] MEDS: CHOLECALCIFEROL (VIT D3) 1,000 UNIT (25 MCG) TABLET PO SCH (09:29)
[2020-04-15] MEDS: SEVELAMER CARBONATE 800 MG TAB (FP) PO SCH ×4 (09:29→17:29)
[2020-04-15] MEDS: METOPROLOL TARTRATE 25 MG TABLET (FP) PO SCH ×3 (09:29→22:31)
[2020-04-15] MEDS: PANTOPRAZOLE 20 MG TABLET PO SCH (09:29)
[2020-04-15] MEDS: carBAMazepine 200 MG TABLET PO SCH ×3 (09:29→22:32)
[2020-04-15] MEDS: ZINC SULFATE 220 MG CAPSULE (FP) PO SCH (09:29)
[2020-04-15] MEDS: VITAMIN B COMP W-C 1 EA TABLET (NEPHRO-VITE) PO SCH ×2 (09:29→09:30)
[2020-04-15] MEDS: ASCORBIC ACID 250 MG TABLET (FP) PO SCH ×2 (09:30→22:32)
[2020-04-15] MEDS: HALOPERIDOL 5 MG TABLET PO SCH ×2 (09:30→22:31)
[2020-04-15 10:44] LABS: BASO % 0.7 % (0-2.0); EOS % 2.2 % (0-4.5); HEMATOCRIT 26.3 % (35.4-49); HEMOGLOBIN 8.5 GM/dL (11.7-16.9); LYMPH % 26.4 % (8-40); MCH 28.3 pg (25.7-33.7); MCHC 32.2 g/dl (32.0-35.9); MEAN CELL VOLUME 87.7 fl (80-96); MEAN PLT VOLUME 7.8 fl (7.5-11.1); MONO % 12.5 % (3.8-10.2); NEUT % 58.2 % (42.8-82.8); PLATELET COUNT 258 K/MM3 (134-434); RDW 16.2 % (11.9-15.9); WHITE BLOOD COUNT 6.8 K/mm3 (4.0-10.0)
[2020-04-15 10:58] LABS: POTASSIUM 4.6 mmol/L (3.5-5.1)
[2020-04-15 11:01] LABS: ALBUMIN 2.5 g/dl (3.4-5.0); BLOOD UREA NITROGEN 57.9 mg/dL (7-18); CALCIUM 8.2 mg/dL (8.5-10.1)
[2020-04-15 11:05] LABS: PHOSPHOROUS 7.3 mg/dL (2.5-4.9)
[2020-04-15 11:06] LABS: BILIRUBIN,TOTAL 0.2 mg/dL (0.2-1)
[2020-04-15 11:47] LABS: CREATININE 10.7 mg/dL (0.55-1.3)
[2020-04-15 16:53] VITALS: BMI 35.5
[2020-04-15] MEDS ORDERED: VANCOMYCIN 1 GRAM (PRE-DOCKED) 1,000 MG/250 ML BAG IVPB ONE (18:18)
[2020-04-15] MEDS: ATORVASTATIN CA 10 MG TABLET (FP) PO SCH (22:31)
[2020-04-16] MEDS ORDERED: DEXTROSE 5%-WATER - 50 ML IVPB ONE (01:04)
[2020-04-16] MEDS ORDERED: PIPERACILLIN/TAZOBACTAM 2.25 GM VIAL IVPB ONE (01:04)
[2020-04-16] MEDS: PIPERACILLIN/TAZOB 2.25 GM 2.25 GM in DEXTROSE 5%-WATER - 50 ML IVPB SCH ×2 (01:50→12:18)
[2020-04-16] MEDS: DIVALPROEX SODIUM 250 MG TABLET E.C. PO SCH ×2 (06:34→14:44)
[2020-04-16] MEDS: INSULIN SLIDING SCALE (NOVOLOG) 1 VIAL SQ SCH ×3 (06:35→16:49)
[2020-04-16] MEDS ORDERED: SODIUM CHLORIDE 250 ML IV PRN (07:35)
[2020-04-16] MEDS ORDERED: EPOETIN ALFA 10,000 UNIT/1 ML VIAL IVPUSH ONE (09:00)
[2020-04-16 09:19] LABS: N-TERMINAL BNP 4109.4 pg/ml (5-125)
[2020-04-16 10:05] LABS: BASO % 0.8 % (0-2.0); EOS % 3.9 % (0-4.5); HEMOGLOBIN 8.4 GM/dL (11.7-16.9); LYMPH % 29.3 % (8-40); MCH 28.6 pg (25.7-33.7); MCHC 32.2 g/dl (32.0-35.9); MEAN CELL VOLUME 88.8 fl (80-96); MEAN PLT VOLUME 8.1 fl (7.5-11.1); MONO % 13.1 % (3.8-10.2); NEUT % 52.9 % (42.8-82.8); PLATELET COUNT 274 K/MM3 (134-434); RBC 2.93 M/mm3 (4.00-5.60); RDW 16.7 % (11.9-15.9); WHITE BLOOD COUNT 7.3 K/mm3 (4.0-10.0)
[2020-04-16] MEDS ORDERED: PT OWN MED DRAWER 7, Y5N ONE (10:18)
[2020-04-16 10:23] LABS: CHLORIDE 100 mmol/L (98-107); POTASSIUM 4.7 mmol/L (3.5-5.1); SODIUM 135 mmol/L (136-145)
[2020-04-16 10:25] LABS: ALBUMIN 2.5 g/dl (3.4-5.0); ANION GAP 9 MMOL/L (8-16); BLOOD UREA NITROGEN 76.4 mg/dL (7-18); CALCIUM 8.1 mg/dL (8.5-10.1); CO2 26 mmol/L (21-32); GLUCOSE,RANDOM 107 mg/dL (74-106); MAGNESIUM 2.2 mg/dL (1.8-2.4)
[2020-04-16 10:28] LABS: PHOSPHOROUS 8.3 mg/dL (2.5-4.9); SGOT/AST 7 U/L (15-37); SGPT/ALT < 6 U/L (13-61)
[2020-04-16 10:30] LABS: TOT PROT 7.9 g/dl (6.4-8.2)
[2020-04-16 10:31] LABS: ALK PHOS 172 U/L (45-117)
[2020-04-16 10:35] LABS: BILIRUBIN,TOTAL 0.3 mg/dL (0.2-1)
[2020-04-16] MEDS: HALOPERIDOL 5 MG TABLET PO SCH (11:03)
[2020-04-16] MEDS: carBAMazepine 200 MG TABLET PO SCH (11:04)
[2020-04-16] MEDS: PANTOPRAZOLE 20 MG TABLET PO SCH (11:04)
[2020-04-16] MEDS: TAMSULOSIN HCL 0.4 MG CAP PO SCH (11:04)
[2020-04-16] MEDS ORDERED: CEFAZOLIN 3 GM in DEXTROSE 5%-WATER - 100 ML IVPB ONE (12:00)
[2020-04-16 12:43] LABS: CREATININE 12.4 mg/dL (0.55-1.3)
[2020-04-16] MEDS: VITAMIN B COMP W-C 1 EA TABLET (NEPHRO-VITE) PO SCH (13:16)
[2020-04-16] MEDS: CHOLECALCIFEROL (VIT D3) 1,000 UNIT (25 MCG) TABLET PO SCH (13:16)
[2020-04-16] MEDS: SEVELAMER CARBONATE 800 MG TAB (FP) PO SCH ×3 (13:16→16:40)
[2020-04-16] MEDS: METOPROLOL TARTRATE 25 MG TABLET (FP) PO SCH (13:16)
[2020-04-16] MEDS: ZINC SULFATE 220 MG CAPSULE (FP) PO SCH (13:16)
[2020-04-16] MEDS: ASCORBIC ACID 250 MG TABLET (FP) PO SCH (13:17)
[2020-04-16 18:12] VITALS: BP 126/76; PULSE 83; TEMP 99.2
[2020-04-17] MEDS ORDERED: ERGOCALCIFEROL (VIT D2) 50,000 UNIT (1.25 MG) CAPSULE PO SCH (10:00)
== END 2020-04-16 18:27 | DRG 628 ==
LOC: JER 13:42 → JERBED 17:24 → J5S 23:28
PROVIDERS: ADMIT Internal Medicine; ATTEND Internal Medicine
PROC: XW033G6 Introduction of REGN-COV2 Monoclonal Antibody into Peripheral Vein, Percutaneous Approach, New Technology Group 6 (ICD-10-PCS; 2020-04-04)
PROC: 0QBR0ZZ Excision of Left Toe Phalanx, Open Approach (ICD-10-PCS; principal; 2020-04-13 08:00)
PROC: 0QBP0ZZ Excision of Left Metatarsal, Open Approach (ICD-10-PCS; 2020-04-13 08:00)
DX: E11.69 Type 2 diabetes mellitus with other specified complication (principal); U07.1 COVID-19; L97.528 Non-pressure chronic ulcer of other part of left foot with other specified severity; I12.0 Hypertensive chronic kidney disease with stage 5 chronic kidney disease or end stage renal disease; L97.428 Non-pressure chronic ulcer of left heel and midfoot with other specified severity; M86.672 Other chronic osteomyelitis, left ankle and foot; E11.52 Type 2 diabetes mellitus with diabetic peripheral angiopathy with gangrene; I96 Gangrene, not elsewhere classified; E11.621 Type 2 diabetes mellitus with foot ulcer; E11.22 Type 2 diabetes mellitus with diabetic chronic kidney disease; N18.6 End stage renal disease; K21.9 Gastro-esophageal reflux disease without esophagitis; F31.9 Bipolar disorder, unspecified; G20 Parkinson's disease; E78.5 Hyperlipidemia, unspecified; F20.9 Schizophrenia, unspecified; E66.9 Obesity, unspecified; Z68.36 Body mass index [BMI] 36.0-36.9, adult; D63.1 Anemia in chronic kidney disease; E11.51 Type 2 diabetes mellitus with diabetic peripheral angiopathy without gangrene; F39 Unspecified mood [affective] disorder; Z99.2 Dependence on renal dialysis
CPT/HCPCS: 11044; 36415; 71045-TC-FY; 73630-TC-LT; 80048; 80053; 80061; 80076; 81003; 82728; 82962; 83036; 83540; 83550; 83605; 83721; 83735; 83880; 84100; 84443; 84484; 85025; 85027; 85610; 85651; 85730; 86140; 86704; 86706; 86707; 86708; 86709; 86803; 86850; 86900; 86901; 87040; 87070; 87086; 87186; 87205; 87340; 88304-TC; 88311-TC; 93005; 93010; 93306-TC; 93926-TC; 94760; 97116-GP; 97162-GP; 99285-25; C9803; G0480; J0885; M0243; Q0243; Q5106; U0003